=== PATIENT | female | born 1975 | race Caucasian/White ===

== ENCOUNTER 2024-01-01 12:36 | Emergency (ER) | payer BC, MEDICAID ==
[~2024-01-01] VITALS: Ht 162.6 cm; Wt 73.0 kg
[2024-01-01 12:48] VITALS: BP 86/52; PULSE 88; RESP 22; TEMP 98.7; O2SAT 100
[2024-01-01 14:04] LABS: BASOPHILS % (AUTO) 0.5 % (0.0-2.0); EOSINOPHILS # (AUTO) 0.1 K/uL (0-0.4); EOSINOPHILS % (AUTO) 0.9 % (0.0-4.0); HEMATOCRIT 34.7 % (36-48); LYMPHOCYTES # (AUTO) 2.2 K/uL (2.5-16.5); LYMPHOCYTES % (AUTO) 33.1 % (20.5-51.1); MEAN CORPUSCULAR HEMOGLOBIN 29 pg (27-31); MEAN CORPUSCULAR HGB CONC 35 g/dL (33-37); MEAN CORPUSCULAR VOLUME 82.8 fL (80-94); MONOCYTES # (AUTO) 0.6 K/uL (0.8-1.0); MONOCYTES % (AUTO) 8.7 % (1.7-9.3); NEUTROPHILS # (AUTO) 3.8 K/uL (1.8-7.7); NEUTROPHILS % (AUTO) 56.8 % (42.2-75.2); PLATELET COUNT (AUTO) 232 K/uL (140-450); RED BLOOD CELL COUNT(AUTO) 4.19 MIL/uL (4.20-5.40); RED CELL DISTRIBUTION WIDTH 13.6 % (11.6-13.7); WHITE BLOOD COUNT (AUTO) 6.7 K/uL (4.8-10.8)
[2024-01-01 14:22] LABS: ALBUMIN 3.7 g/dL (3.4-5.0); ANION GAP 14.2 (8-16); CALCIUM 9.9 mg/dL (8.5-10.1); CREATININE 0.8 mg/dL (0.6-1.3); POTASSIUM 3.2 mmol/L (3.5-5.1); TOTAL BILIRUBIN 0.3 mg/dL (0.0-1.0); TOTAL PROTEIN, SERUM 7.4 g/dL (6.4-8.2)
[2024-01-01] MEDS: NACL 0.9% 1,000 ML IV ONE (14:24)
[2024-01-01 14:40] LABS: APPEARANCE,URINE CLEAR (CLEAR); BILIRUBIN,URINE NEGATIVE (NEGATIVE); BLOOD, URINE NEGATIVE (NEGATIVE); COLOR,URINE YELLOW (YELLOW); LEUKOCYTE ESTERASE ,URINE NEGATIVE (NEGATIVE); NITRITE, URINE NEGATIVE (NEGATIVE); PROTEIN,URINE NEGATIVE (NEGATIVE); UGLUCOSE NEGATIVE (NEGATIVE); UROBILINOGEN,URINE 0.2 EU/dL (0.2 - 1)
[2024-01-01] MEDS: POTASSIUM CHLORIDE 10 MEQ TABER PO ONE (14:55)
[2024-01-01] MEDS ORDERED: ONDA8TAB87 PO (15:30)
[2024-01-01] MEDS ORDERED: ACET-8905 PO (15:30)
[2024-01-01] MEDS ORDERED: OMEP40EC23 PO (15:30)
[2024-01-01] MEDS ORDERED: IBUP-2213 PO (15:30)
[2024-01-01] MEDS: ONDANSETRON 4 MG/2 ML VIAL IVP ONE (15:56)
[2024-01-01] MEDS: MORPHINE SULFATE 4 MG/ML SYR IVP ONE (15:59)
[2024-01-01 17:50] VITALS: BP 122/64; PULSE 88; RESP 19; TEMP 98.2; O2SAT 99
== END 2024-01-01 17:52 | disposition home or self-care (01) ==
LOC: MED 12:36
DX: R10.13 Epigastric pain (principal); R11.10 Vomiting, unspecified; E11.9 Type 2 diabetes mellitus without complications; Z88.5 Allergy status to narcotic agent; Z88.8 Allergy status to other drugs, medicaments and biological substances; Z79.4 Long term (current) use of insulin; Z79.899 Other long term (current) drug therapy; Z90.49 Acquired absence of other specified parts of digestive tract; Z98.890 Other specified postprocedural states
CPT/HCPCS: 36415; 80053; 81003; 81025; 83690; 85025; 96361; 96374; 96375; 99284; J2270; J2405; J7030